=== PATIENT | male | born 1965 | race African-American/Black ===

== ENCOUNTER 2020-01-04 12:21 | Inpatient (IN) | payer OTHER ==
--- NOTE | 2020-01-04 12:32 | BHS.RME ---
Substance Use & Tx History - Substance Use History Alcohol Substance amount: 3 pints vodka Frequency of use: Daily Substance route: Oral Date of Last Use: 01/04/20 Heroin Substance amount: 3 bags Frequency of use: Less than 3 times per week Date of Last Use: 01/03/20 (started age 24) Cocaine-Crack Substance amount: $60 Frequency of use: Daily Substance route: Smoking Date of Last Use: 12/30/19 (started age 19) Marijuana/Hashish Substance amount: 1 blunt Frequency of use: Less than 5 times a year Substance route: Smoking Date of Last Use: 01/02/20 (t-5) Methadone Substance amount: street Frequency of use: Less than 3 times per week Substance route: Oral Date of Last Use: 01/02/20 (when he can't get heroin) Physical/Psych/Mental Status - Behavior General Behavior: Increased activity (restlessness, agitation) Eye Contact: Normal - Cooperativeness Cooperativeness: Cooperative - Thinking Thought Processes: Tight, Logical, Goal Directed - Physical Health Problems Is patient presently having any pain?: No Does patient presently have any injuries (include location): No Does patient currently have a fever: No Is patient : No CIWA Nausea/Vomitin-Mild Nausea/No Vomiting Muscle Tremors: 2 Anxiety: 2 Agitation: 2 Paroxysmal Sweats: 2 Orientation: 1-Uncertain about Date Tacttile Disturbances: 0-None Auditory Disturbances: 0-None Visual Disturbances: 0-None Headache: 0-None Present (not yet in withdrawals due to use) CIWA-Ar Total Score: 10
--- NOTE | 2020-01-04 13:31 | HP ---
CIWA Score Nausea/Vomitin-Mild Nausea/No Vomiting Muscle Tremors: 2 Anxiety: 2 Agitation: 2 Paroxysmal Sweats: 2 Orientation: 1-Uncertain about Date Tacttile Disturbances: 0-None Auditory Disturbances: 0-None Visual Disturbances: 0-None Headache: 0-None Present (not yet in withdrawals due to use) CIWA-Ar Total Score: 10 - Admission Criteria OASAS Guidelines: Admission for Medically Managed Detox: Requires at least one of the followin. CIWA greater than 12 2. Seizures within the past 24 hours 3. Delirium tremens within the past 24 hours 4. Hallucinations within the past 24 hours 5. Acute intervention needed for co occurring medical disorder 6. Acute intervention needed for co occurring psychiatric disorder 7. Severe withdrawal that cannot be handled at a lower level of care (continued vomiting, continued diarrhea, abnormal vital signs) requiring intravenous medication and/or fluids 8. Admitting History and Physical - Admission Chief Complaint: Mr. Greenfield is a 54 yo man who requests admission to detox for alcohol use. History of Present Illness: Mr. Greenfield is a 54 yo man who requests admission to detox for alcohol use. This is his first visit to [facility] [place], he is sent from [facility]. 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 Psych: none SoC: homeless Legal: court case pending next year Substance Use History Alcohol Substance amount: 3 pints vodka Frequency of use: Daily Substance route: Oral Date of Last Use: 01/04/20 Heroin Substance amount: 3 bags Frequency of use: Less than 3 times per week Date of Last Use: 01/03/20 (started age 24) Cocaine-Crack Substance amount: $60 Frequency of use: Daily Substance route: Smoking Date of Last Use: 12/30/19 (started age 19) Marijuana/Hashish Substance amount: 1 blunt Frequency of use: Less than 5 times a year Substance route: Smoking Date of Last Use: 01/02/20 (t-5) Methadone Substance amount: street Frequency of use: Less than 3 times per week Substance route: Oral Date of Last Use: 01/02/20 (when he can't get heroin) History Source: Patient Limitations to Obtaining History: Intoxication Admission ROS [facility] - HPI Exam Limitations: Other (intoxicated) - Ebola screening Have you traveled outside of the country in the last 21 days: No Have you been sick,other than usual withdrawal symptoms: No Do you have a fever: No - Review of Systems Constitutional: No Symptoms Reported EENT: reports: Blurred Vision (left eye blind post injury) Respiratory: reports: No Symptoms reported GI: reports: Nausea : reports: No Symptoms Reported Musculoskeletal: reports: Back Pain Integumentary: reports: No Symptoms Reported Neuro: reports: No Symptoms reported, Other (mild tremulousness) Endocrine: reports: No Symptoms Reported Hematology: reports: No Symptoms Reported Psychiatric: reports: Anxious Patient History - Smoking Cessation Smoking history: Current every day smoker Have you smoked in the past 12 months: Yes Hx Chewing Tobacco Use: No Initiated information on smoking cessation: Yes 'Breaking Loose' booklet given: 01/04/20 Admission Physical Exam [facility] - Vital Signs Vital Signs: vitals 125/77, HR 83, temp 98., RR 12 UDS: cyrus - Physical General Appearance: Yes: Intoxicated, Thin, Tremorous HEENTM: Yes: Hearing grossly Normal, Normocephalic, Normal Voice, Other (left eye esodeviated, unable to fully abduct, light perception?) Respiratory: Yes: Lungs Clear, No Respiratory Distress, No Accessory Muscle Use Neck: Yes: Within Normal Limits, Supple Breast: Yes: Breast Exam Deferred Cardiology: Yes: Regular Rhythm, Regular Rate Abdominal: Yes: Normal Bowel Sounds, Non Tender, Flat, Soft Genitourinary: Yes: Other (deferred) Musculoskeletal: Yes: Other (deferred, pt intoxicated, lying in bed) Extremities: Yes: Normal Inspection, Non-Tender Neurological: Yes: Alert, Normal Response Integumentary: Yes: Within Normal Limits - Diagnostic (1) Alcohol dependence with withdrawal, uncomplicated Current Visit: Yes Status: Acute Comment: 1. Admit alcohol use disorder. 2. Meets admission criteria due to comorbid medical disorders, noncompliance with medication, poor recovery environment (2) Opioid use disorder Current Visit: Yes Status: Acute Comment: 1. use is every other day, will not detox at this time, will observe clinically 2. Education about substance use disorder 3. Narcan to the pharmacy upon discharge (3) Cocaine dependence Current Visit: Yes Status: Acute Qualifiers: Substance use status: uncomplicated Qualified Code(s): F14.20 - Cocaine dependence, uncomplicated (4) Seizure disorder Current Visit: Yes Status: Acute Comment: 1. Await med reconciliation, will restart antiepileptic meds 2. Send AED drug level (5) HTN (hypertension) Current Visit: Yes Status: Acute Qualifiers: Hypertension type: essential hypertension Qualified Code(s): I10 - Essential (primary) hypertension Comment: 1. monitor clinically 2. pt admits to med noncompliance 3. RN to attempt med rec (6) Blind left eye Current Visit: Yes Status: Chronic (7) Fracture of left humerus Current Visit: No Status: Chronic Cleared for Admission S - Detox or Rehab [facility] Level of Care: Medically Managed Detox Regimen/Protocol: Librium Breathalyzer - Breathalyzer Breathalyzer: 0.108 Inpatient Rehab Admission - Rehab Decision to Admit Inpatient rehab admission?: No
[2020-01-04 13:43] VITALS: BMI 21.7
[2020-01-04] MEDS ORDERED: ACETAMINOPHEN 325 MG TABLET (FP) PO PRN ×2 (13:45)
[2020-01-04] MEDS ORDERED: MAG HYDROX/AL HYDROX/SIMETH 30 ML UNIT-DOSE CUP PO PRN (13:45)
[2020-01-04] MEDS ORDERED: MENTHOL/PHENOL 1 EACH UD MM PRN (13:45)
[2020-01-04] MEDS ORDERED: BISMUTH SUBSALICYLATE 262 MG/15 ML BTL PO PRN (13:45)
[2020-01-04] MEDS ORDERED: NICOTINE POLACRILEX 2 MG GUM BUC PRN (13:45)
[2020-01-04] MEDS ORDERED: IBUPROFEN 400 MG TABLET (FP) PO PRN (13:45)
[2020-01-04] MEDS ORDERED: MAGNESIUM CITRATE 300 ML BOTTLE PO PRN (13:45)
[2020-01-04] MEDS ORDERED: METHOCARBAMOL 500 MG TABLET PO PRN (13:45)
[2020-01-04] MEDS ORDERED: chlordiazePOXIDE HCL 25 MG CAPSULE PO PRN (13:45)
[2020-01-04] MEDS ORDERED: ONDANSETRON *ODT* 4 MG TABLET SL PRN (13:45)
[2020-01-04] MEDS ORDERED: MAGNESIUM HYDROX 2400MG/30ML ORAL SUSPENSION 30 ML CUP PO PRN (13:45)
--- OUTSIDE RECORDS SUMMARY | 2020-01-04 15:47 | XMS ---
:1965 Author Organization [facility] Support Name Relationship Address Phone UE Unavailable Unavailable Unavailable JACOB BOWEN BROTHER [address] [place] [address] Re-disclosure Warning The records that you are about to access may contain information from federally- assisted alcohol or drug abuse programs. If such information is present, then the following federally mandated warning applies: This information has been disclosed to you from records protected by federal confidentiality rules (42 CFR part 2). The federal rules prohibit you from making any further disclosure of this information unless further disclosure is expressly permitted by the written consent of the person to whom it pertains or as otherwise permitted by 42 CFR part 2. A general authorization for the release of medical or other information is NOT sufficient for this purpose. The Federal rules restrict any use of the information to criminally investigate or prosecute any alcohol or drug abuse patient.The records that you are about to access may contain highly sensitive health information, the redisclosure of which is protected by Article 27-F of the [facility] Public Health law. If you continue you may haveaccess to information: Regarding HIV / AIDS; Provided by facilities licensed or operated by the [facility] Office of Mental Health; or Provided by the [facility] Office for People With Developmental Disabilities. If such information is present, then the following [facility] mandated warning applies: This information has been disclosed to you from confidential records which are protected by state law. State law prohibits you from making any further disclosure of this information without the specific written consent of the person to whom it pertains, or as otherwise permitted by law. Any unauthorized further disclosure in violation of state law may result in a fine or alf sentence or both. A general authorization for the release of medical or other information is NOT sufficient authorization for further disclosure. Insurance Providers Payer name Policy type Policy ID Covered Covered republican's Policy P richmond / Coverage republican ID relationship to [employer] Inf ormation type cobb BEACON [id number] SP [id number] [facility] [place]
[2020-01-04 17:29] LABS: ALBUMIN 3.4 g/dl (3.4-5.0); BILIRUBIN,TOTAL 0.3 mg/dL (0.2-1); BLOOD UREA NITROGEN 17.2 mg/dL (7-18); CALCIUM 9.1 mg/dL (8.5-10.1); CREATININE 1.5 mg/dL (0.55-1.3); POTASSIUM 3.9 mmol/L (3.5-5.1); TOT PROT 7.4 g/dl (6.4-8.2)
[2020-01-04 17:45] LABS: HEMATOCRIT 36.7 % (35.4-49); HEMOGLOBIN 12.5 GM/dL (11.7-16.9); MCH 31.2 pg (25.7-33.7); MCHC 34.1 g/dl (32.0-35.9); MEAN CELL VOLUME 91.4 fl (80-96); MEAN PLT VOLUME 7.1 fl (7.5-11.1); PLATELET COUNT 362 K/MM3 (134-434); RBC 4.02 M/mm3 (4.00-5.60); RDW 13.9 % (11.9-15.9); WHITE BLOOD COUNT 5.4 K/mm3 (4.0-10.0)
[2020-01-04] MEDS: hydrOXYzine PAMOATE 25 MG CAPSULE (FP) PO SCH ×3 (20:08→23:40)
[2020-01-04] MEDS: chlordiazePOXIDE HCL 25 MG CAPSULE PO SCH ×2 (20:08→23:40)
[2020-01-04] MEDS: THIAMINE HCL 100 MG TABLET (FP) PO SCH (23:40)
[2020-01-04] MEDS: MELATONIN 5 MG TABLETS PO SCH (23:40)
[2020-01-05] MEDS: chlordiazePOXIDE HCL 25 MG CAPSULE PO SCH ×4 (06:42→23:50)
[2020-01-05] MEDS: hydrOXYzine PAMOATE 25 MG CAPSULE (FP) PO SCH ×5 (06:42→23:50)
--- NOTE | 2020-01-05 10:06 | EKG ---
Test Reason : Blood Pressure : / mmHG Vent. Rate : 070 BPM Atrial Rate : 070 BPM P-R Int : 156 ms QRS Dur : 102 ms QT Int : 466 ms P-R-T Axes : 078 077 019 degrees QTc Int : 503 ms NORMAL SINUS RHYTHM WITH SINUS ARRHYTHMIA T WAVE ABNORMALITY, CONSIDER ANTERIOR ISCHEMIA PROLONGED QT ABNORMAL ECG NO PREVIOUS ECGS AVAILABLE Confirmed by Ran Hull ([id number]) on 01/05/2020 10:06:38 AM Referred By: Confirmed By:Ran Hull
[2020-01-05] MEDS: NICOTINE 7 MG/24 HOURS TOPICAL PATCH TD SCH (10:48)
[2020-01-05] MEDS: PRENATAL VITAMINS W/ FOLIC ACID TABLET (FP) PO SCH (10:48)
--- NOTE | 2020-01-05 11:38 | PN ---
S CIWA - CIWA Score Nausea/Vomitin-No Nausea/No Vomiting Muscle Tremors: 3 Anxiety: 2 Agitation: 3 Paroxysmal Sweats: 2 Orientation: 0-Oriented Tacttile Disturbances: 0-None Auditory Disturbances: 0-None Visual Disturbances: 0-None Headache: 0-None Present CIWA-Ar Total Score: 10 BHS Progress Note (SOAP) Subjective: irritable agitation Objective: 01/05/20 11:36 Vital Signs Temperature 97.8 F 01/05/20 08:13 Pulse Rate 51 L 01/05/20 08:13 Respiratory Rate 01/05/20 08:13 Blood Pressure 144/97 01/05/20 08:13 O2 Sat by Pulse Oximetry (%) 96 01/05/20 08:13 Laboratory Tests 01/04/20 01/04/20 01/04/20 14:10 14:10 14:10 WBC 5.4 RBC 4.02 Hgb 12.5 Hct 36.7 MCV 91.4 MCH 31.2 MCHC 34.1 RDW 13.9 Plt Count 362 MPV 7.1 L Sodium 144 Potassium 3.9 Chloride 110 H Carbon Dioxide 27 Anion Gap 7 L BUN 17.2 Creatinine 1.5 H Est GFR (CKD-EPI)AfAm 60.73 Est GFR (CKD-EPI)NonAf 52.40 Random Glucose 97 Calcium 9.1 Total Bilirubin 0.3 AST 12 L ALT 18 Alkaline Phosphatase 104 Total Protein 7.4 Albumin 3.4 Syphilis Serology Non-reactive aaox3 ambulating no acute distress pt refused to elaborate any s/s of withdrawals Assessment: 01/05/20 11:36 withdrawals Plan: continue detox
[2020-01-05] MEDS: THIAMINE HCL 100 MG TABLET (FP) PO SCH (23:50)
[2020-01-05] MEDS: MELATONIN 5 MG TABLETS PO SCH (23:50)
[2020-01-06] MEDS: chlordiazePOXIDE HCL 25 MG CAPSULE PO SCH ×4 (07:49→23:09)
[2020-01-06] MEDS: hydrOXYzine PAMOATE 25 MG CAPSULE (FP) PO SCH ×5 (07:50→23:09)
[2020-01-06] MEDS: NICOTINE 7 MG/24 HOURS TOPICAL PATCH TD SCH (10:37)
[2020-01-06] MEDS: PRENATAL VITAMINS W/ FOLIC ACID TABLET (FP) PO SCH (10:37)
--- NOTE | 2020-01-06 13:18 | PN ---
S CIWA - CIWA Score Nausea/Vomitin-No Nausea/No Vomiting Muscle Tremors: 3 Anxiety: 2 Agitation: 2 Paroxysmal Sweats: 2 Orientation: 0-Oriented Tacttile Disturbances: 0-None Auditory Disturbances: 0-None Visual Disturbances: 0-None Headache: 0-None Present CIWA-Ar Total Score: 9 BHS Progress Note (SOAP) Subjective: restless sweats body aches agitation Objective: 01/06/20 13:17 Vital Signs Temperature 97.8 F 01/06/20 09:10 Pulse Rate 95 H 01/06/20 09:10 Respiratory Rate 16 01/06/20 09:10 Blood Pressure 122/92 01/06/20 09:10 O2 Sat by Pulse Oximetry (%) 97 01/06/20 09:10 Laboratory Tests 01/04/20 01/04/20 01/04/20 14:00 14:10 14:10 WBC 5.4 RBC 4.02 Hgb 12.5 Hct 36.7 MCV 91.4 MCH 31.2 MCHC 34.1 RDW 13.9 Plt Count 362 MPV 7.1 L Sodium 144 Potassium 3.9 Chloride 110 H Carbon Dioxide 27 Anion Gap 7 L BUN 17.2 Creatinine 1.5 H Est GFR (CKD-EPI)AfAm 60.73 Est GFR (CKD-EPI)NonAf 52.40 Random Glucose 97 Calcium 9.1 Total Bilirubin 0.3 AST 12 L ALT 18 Alkaline Phosphatase 104 Total Protein 7.4 Albumin 3.4 Syphilis Serology COVID-19 ([facility]ICIA) Not detected 01/04/20 14:10 WBC RBC Hgb Hct MCV MCH MCHC RDW Plt Count MPV Sodium Potassium Chloride Carbon Dioxide Anion Gap BUN Creatinine Est GFR (CKD-EPI)AfAm Est GFR (CKD-EPI)NonAf Random Glucose Calcium Total Bilirubin AST ALT Alkaline Phosphatase Total Protein Albumin Syphilis Serology Non-reactive COVID-19 (ALICIA) labs noted aaox3 ambulating no acute distress Assessment: 01/06/20 13:17 withdrawals Plan: continue detox
[2020-01-06] MEDS: MELATONIN 5 MG TABLETS PO SCH (23:08)
[2020-01-06] MEDS: THIAMINE HCL 100 MG TABLET (FP) PO SCH (23:09)
[2020-01-07] MEDS ORDERED: chlordiazePOXIDE HCL 10 MG CAPSULE PO PRN
[2020-01-07] MEDS: chlordiazePOXIDE HCL 10 MG CAPSULE PO SCH ×2 (07:51→10:24)
[2020-01-07] MEDS: hydrOXYzine PAMOATE 25 MG CAPSULE (FP) PO SCH ×2 (07:51→10:24)
[2020-01-07 09:30] VITALS: BP 121/64; PULSE 76; TEMP 98.1
[2020-01-07] MEDS: NICOTINE 7 MG/24 HOURS TOPICAL PATCH TD SCH (10:24)
[2020-01-07] MEDS: PRENATAL VITAMINS W/ FOLIC ACID TABLET (FP) PO SCH (10:24)
[2020-01-07] MEDS ORDERED: hydrOXYzine PAMOATE 25 MG CAPSULE (FP) PO PRN (12:26)
--- NOTE | 2020-01-07 12:29 | PN ---
S CIWA - CIWA Score Nausea/Vomitin-No Nausea/No Vomiting Muscle Tremors: 2 Anxiety: 1-Mildly Anxious Agitation: 2 Paroxysmal Sweats: 1-Minimal Palms Moist Orientation: 0-Oriented Tacttile Disturbances: 0-None Auditory Disturbances: 0-None Visual Disturbances: 0-None Headache: 0-None Present CIWA-Ar Total Score: 6 BHS Progress Note (SOAP) Subjective: anxious sweats restless Objective: 01/07/20 12:27 Vital Signs Temperature 98.1 F 01/07/20 09:00 Pulse Rate 76 01/07/20 09:00 Respiratory Rate 17 01/07/20 09:00 Blood Pressure 121/64 01/07/20 09:00 O2 Sat by Pulse Oximetry (%) 100 01/07/20 09:00 Laboratory Tests 01/04/20 01/04/20 01/04/20 14:00 14:10 14:10 WBC 5.4 RBC 4.02 Hgb 12.5 Hct 36.7 MCV 91.4 MCH 31.2 MCHC 34.1 RDW 13.9 Plt Count 362 MPV 7.1 L Sodium 144 Potassium 3.9 Chloride 110 H Carbon Dioxide 27 Anion Gap 7 L BUN 17.2 Creatinine 1.5 H Est GFR (CKD-EPI)AfAm 60.73 Est GFR (CKD-EPI)NonAf 52.40 Random Glucose 97 Calcium 9.1 Total Bilirubin 0.3 AST 12 L ALT 18 Alkaline Phosphatase 104 Total Protein 7.4 Albumin 3.4 Syphilis Serology COVID-19 ([facility]) Not detected 01/04/20 14:10 WBC RBC Hgb Hct MCV MCH MCHC RDW Plt Count MPV Sodium Potassium Chloride Carbon Dioxide Anion Gap BUN Creatinine Est GFR (CKD-EPI)AfAm Est GFR (CKD-EPI)NonAf Random Glucose Calcium Total Bilirubin AST ALT Alkaline Phosphatase Total Protein Albumin Syphilis Serology Non-reactive COVID-19 ([facility]) aaox3 ambulating no acute distress Assessment: 01/07/20 12:28 withdrawals Plan: continue detox
--- NOTE | 2020-01-07 14:40 | PN ---
[facility] Progress Note Note: pt states this is not the place for him and wants to go home. Pt is insisting on talking to his significant other who is in another unit and it was explained by counseling, medical and nursing that we cannot jeopardize another person treatment or recovery but he did not want to hear that. Pt was also explained that with the proper consent and counseling between both unit we could find a way to assist with communication. Again pt refused and insisted on leaving to speak to his woman. will d/c pt.
--- NOTE | 2020-01-07 14:41 | DS ---
[facility] Detox Discharge Summary Admission Date: 01/04/20 Discharge Date: 01/07/20 - History Present History: Alcohol Dependence, Cocaine Dependence - Physical Exam Results Vital Signs: Vital Signs Temperature 98.1 F 01/07/20 09:00 Pulse Rate 76 01/07/20 09:00 Respiratory Rate 17 01/07/20 09:00 Blood Pressure 121/64 01/07/20 09:00 O2 Sat by Pulse Oximetry (%) 100 01/07/20 09:00 Pertinent Admission Physical Exam Findings: Vital Signs Temperature 98.1 F 01/07/20 09:00 Pulse Rate 76 01/07/20 09:00 Respiratory Rate 17 01/07/20 09:00 Blood Pressure 121/64 01/07/20 09:00 O2 Sat by Pulse Oximetry (%) 100 01/07/20 09:00 Laboratory Tests 01/04/20 01/04/20 01/04/20 14:00 14:10 14:10 WBC 5.4 RBC 4.02 Hgb 12.5 Hct 36.7 MCV 91.4 MCH 31.2 MCHC 34.1 RDW 13.9 Plt Count 362 MPV 7.1 L Sodium 144 Potassium 3.9 Chloride 110 H Carbon Dioxide 27 Anion Gap 7 L BUN 17.2 Creatinine 1.5 H Est GFR (CKD-EPI)AfAm 60.73 Est GFR (CKD-EPI)NonAf 52.40 Random Glucose 97 Calcium 9.1 Total Bilirubin 0.3 AST 12 L ALT 18 Alkaline Phosphatase 104 Total Protein 7.4 Albumin 3.4 Syphilis Serology COVID-19 ([facility]) Not detected 01/04/20 14:10 WBC RBC Hgb Hct MCV MCH MCHC RDW Plt Count MPV Sodium Potassium Chloride Carbon Dioxide Anion Gap BUN Creatinine Est GFR (CKD-EPI)AfAm Est GFR (CKD-EPI)NonAf Random Glucose Calcium Total Bilirubin AST ALT Alkaline Phosphatase Total Protein Albumin Syphilis Serology Non-reactive COVID-19 ([facility]) labs noted aaox3 ambulating no acute distress - Treatment Hospital Course: Detox Protocol Followed, Detoxed Safely, Responded well, Discharged Condition Good, Rehab Referral Accepted - Medication Discharge Medications: Ambulatory Orders Unobtainable 01/04/20 - Diagnosis (1) H/O heart artery stent Current Visit: Yes Status: Acute (2) HTN (hypertension) Current Visit: Yes Status: Acute Qualifiers: Hypertension type: essential hypertension Qualified Code(s): I10 - Essential (primary) hypertension (3) Seizure disorder Current Visit: Yes Status: Acute (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
[2020-01-08] MEDS ORDERED: chlordiazePOXIDE HCL 10 MG CAPSULE PO SCH (05:00)
[2020-01-09] MEDS ORDERED: chlordiazePOXIDE HCL 10 MG CAPSULE PO ONE (05:00)
== END 2020-01-07 14:53 | disposition home or self-care (01) | DRG 773 ==
LOC: YASAS 12:21 → Y6N 14:07
PROVIDERS: ADMIT Allergy & Immunology; ATTEND Allergy & Immunology
PROC: HZ2ZZZZ Detoxification Services for Substance Abuse Treatment (ICD-10-PCS; principal; 2020-01-04)
DX: F10.230 Alcohol dependence with withdrawal, uncomplicated (principal); F14.20 Cocaine dependence, uncomplicated; F11.10 Opioid abuse, uncomplicated; F12.10 Cannabis abuse, uncomplicated; G40.909 Epilepsy, unspecified, not intractable, without status epilepticus; I10 Essential (primary) hypertension; Z95.5 Presence of coronary angioplasty implant and graft; H54.62 Unqualified visual loss, left eye, normal vision right eye; R94.31 Abnormal electrocardiogram [ECG] [EKG]; Z87.81 Personal history of (healed) traumatic fracture; Z91.018 Allergy to other foods; Z59.0 Homelessness
CPT/HCPCS: 36415; 80053; 85027; 86780; 93005; 93010; U0003

== ENCOUNTER 2020-01-04 15:29 | Emergency (ER) | payer OTHER ==
[2020-01-04 15:46] VITALS: BP 116/77; PULSE 76; TEMP 98.3; BMI 22.3
--- NOTE | 2020-01-04 16:21 | PDOC ---
History of Present Illness - General Chief Complaint: Alcohol intoxication Stated Complaint: Abnormal Lab Results Time Seen by Provider: 01/04/20 15:45 History Source: Patient, Other ([facility] Notes) - History of Present Illness Initial Comments: 01/04/20 16:20 54y M with PMH of polysubstance use (cocaine, heroin, alcohol) presenting to the ER from [facility] for abnormal EKG. Pt is denying chest pain, sob, abdominal pain, n/v/d, fever, chills, cough. States he last used at 1am today. Pt otherwise uncooperative with questions and exam. 01/04/20 17:26 Past History - Medical History Allergies/Adverse Reactions: Allergies Allergy/AdvReac Type Severity Reaction Status Date / Time Pork/Porcine Containing Allergy Severe Swelling Verified 01/04/20 15:43 Products No Known Drug Allergies Allergy Verified 01/04/20 15:43 Home Medications: Ambulatory Orders Unobtainable 01/04/20 Asthma: No Cardiac Disorders: Yes (patient reports 6 cardiac stents) COPD: No Diabetes: No GI Disorders: No Disorders: No HTN: Yes Kidney Stones: No Seizures: No - Surgical History Abdominal Surgery: No Appendectomy: No Cardiac Surgery: Yes (2016, patient report 6 stents) Cholecystectomy: No Lung Surgery: No Neurologic Surgery: No Orthopedic Surgery: No - Reproductive History Testicular Surgery: No - Psycho-Social/Smoking History Smoking History: Former smoker Have you smoked in the past 12 months: No Number of Cigarettes Smoked Daily: 7 If you are a former smoker, when did you quit?: no Information on smoking cessation initiated: No 'Breaking Loose' booklet given: 01/04/20 - Substance Abuse Hx (Audit-C & DAST Scrn) How often the patient has a drink containing alcohol: 4 0r more times/wk Number of drinks the patient has on a typical day: 10 or more How often the patient has six or more drinks on one occasion: Daily or almost daily Score: In Men: 4 or > Positive; In Women: 3 or > Positive: 12 Screen Result (Pos requires Nsg. Audit-10AR): Positive In the last yr the pt used illegal drug/Rx for NonMed reason: Yes Score: Yes response is considered Positive: 1 Screen Result (Positive result requires Nsg. DAST-10): Positive Review of Systems - Review of Systems Constitutional: No: Symptoms Reported HEENTM: No: Symptoms Reported Respiratory: No: Symptoms reported Cardiac (ROS): No: Symptoms Reported ABD/GI: No: Symptoms Reported : No: Symptoms Reported Musculoskeletal: No: Symptoms Reported Integumentary: No: Symptoms Reported Neurological: No: Symptoms reported *Physical Exam - Vital Signs Last Vital Signs Temp Pulse Resp BP Pulse Ox 98.3 F 76 16 116/77 97 01/04/20 15:44 01/04/20 15:44 01/04/20 15:44 01/04/20 15:44 01/04/20 15:44 - Physical Exam General Appearance: Yes: Thin. No: Apparent Distress HEENT: positive: EOMI, JOSUÉ Neck: positive: Trachea midline, Supple Respiratory/Chest: positive: Lungs Clear, Normal Breath Sounds. negative: Crackles, Rales, Rhonchi, Stridor, Wheezing Cardiovascular: positive: Regular Rhythm, Regular Rate, S1, S2. negative: Edema, JVD, Murmur Vascular Pulses: Dorsalis-Pedis (R): 2+, Doralis-Pedis (L): 2+ Gastrointestinal/Abdominal: positive: Normal Bowel Sounds, Soft. negative: Tender Musculoskeletal: negative: CVA Tenderness Extremity: positive: Normal Capillary Refill. negative: Pedal Edema, Swelling, Calf Tenderness Integumentary: positive: Normal Color, Dry, Warm Neurologic: positive: engineer systems II-XII NML intact, Fully Oriented, Alert, Normal Mood/Affect, Normal Response, Motor Strength 5/5 ED Treatment Course - LABORATORY CBC & Chemistry Diagram: 01/04/20 16:36 01/04/20 16:36 Medical Decision Making - Medical Decision Making 01/04/20 17:28 54y M with polysubstance abuse presenting to the ER for abnormal ekg from [facility]. vitals wnl has no complaints. ekg: nsr at 63bpm. no celi or depressions. twi in V1, V2. labs pending 01/04/20 17:56 pt wants to leave. Does not wish to stay for lab results. pt told that he will not get transport back to [facility] if he does not wait to be cleared. pt states he does not care. He is clinically sober, no ataxia, no slurred speech. pt told that he risks permanent disability, if he does not wait. pt says "I am already disabled". refusing to sign AMA form. walked out of ER pt eloped. Discharge - Discharge Information Problems reviewed: Yes Clinical Impression/Diagnosis: Intoxication, Opioid use disorder, Abnormal EKG Cocaine dependence Qualifiers: Substance use status: uncomplicated Qualified Code(s): F14.20 - Cocaine dependence, uncomplicated Condition: Unchanged/Unknown Disposition: ELOPED - Follow up/Referral - Patient Discharge Instructions Patient Printed Discharge Instructions: DI for Alcohol Use Disorder Additional Instructions: You were seen in the ER today for an abnormal EKG. There is no signs of an [place]. The blood tests are normal. Come back to the ER if there is chest pain, shortness of breath, respiratory distress. Thank you - Post Discharge Activity
--- NOTE | 2020-01-04 17:28 | PDOC ---
Documentation entered by Citlali Reis SCRIBE, acting as scribe for Jada Stratton DO. Jada Stratton DO: This documentation has been prepared by the Smiley sánchez Xhesika, SCRIBE, under my direction and personally reviewed by me in its entirety. I confirm that the documentation accurately reflects all work, treatment, procedures, and medical decision making performed by me. Attending Attestation - Resident Resident Name: Layne Donaldson - ED Attending Attestation I have performed the following: I have examined & evaluated the patient, The case was reviewed & discussed with the resident, I agree w/resident's findings & plan, Exceptions are as noted - HPI HPI: 01/04/20 16:17 The patient is a 54 year old male with a significant PMH of alcohol abuse and heroin, crack-cocain, marijuana abuse who presents to the emergency department [facility] from [facility] for abnormal ekg. The patient denies chest pain, shortness of breath, headache and dizziness. Denies fever, chills, cough, nausea, vomiting, diarrhea and constipation. Denies dysuria, frequency, urgency and hematuria. Allergies: NKDA. Pork/porcine containing products. - Physicial Exam PE: 01/04/20 16:20 GENERAL: sleeping, arousable, but doesn't want to participate in the exam EYES: refusing to open ENT: hearing grossly normal, nares patent NECK: Normal ROM LUNGS: Breath sounds equal, clear to auscultation bilaterally. No wheezes, and no crackles HEART: Regular rate and rhythm, normal S1 and S2, no murmurs, rubs or gallops ABDOMEN: Soft, nontender, normoactive bowel sounds. No guarding, no rebound. No masses EXTREMITIES: moves all extremities, no c/c/e SKIN: no track dykes 01/04/20 17:24 - Medical Decision Making 01/04/20 17:26 a/p: 54yo male sent from [facility] for eval of abnl ekg -hx of cad with 6 stents -no cp or sob -pt unwilling to fully participate in the exam or history -keeps stating he only wants detox -will send labs, ekg -if trop neg and ekg nonacute will be stable for dc back to [facility] 01/04/20 17:54 pt labs pending pt states he does not want to wait for trop and doesn't want to go back to detox states he wants to ama states he wants to leave trop pending pt states he wants to sign out ama states he doesn't care about detox pt will sign AMA paperwork Note: The patient insists on leaving the emergency dept and is signing out against medical advice. The patient understands the risks and complications that may result from the refusal of medical care and admission which includes and permanent disability. The patient has the mental capacity of understanding the risks of refusing care and is capable of making an informed decision. The patient was instructed to return to the emergency department should he change his mind regarding medical care or should his condition worsen. The patient signed the Against Medical Advice form. Heart Score/ECG Review - ECG Intrepretation Comment:: 01/04/20 17:28 sinus at 63, nl axis, q waves septally which is age indeterminate, no acute st changes, abnl ekg, but no acute stemi Discharge - Discharge Information Problems reviewed: Yes Clinical Impression/Diagnosis: Intoxication, Opioid use disorder, Abnormal EKG Cocaine dependence Qualifiers: Substance use status: uncomplicated Qualified Code(s): F14.20 - Cocaine dependence, uncomplicated Condition: Unchanged/Unknown Disposition: AGAINST MEDICAL ADVICE - Follow up/Referral - Patient Discharge Instructions Patient Printed Discharge Instructions: DI for Alcohol Use Disorder Additional Instructions: You were seen in the ER today for an abnormal EKG. There is no signs of an [place]. The blood tests are normal. Come back to the ER if there is chest pain, shortness of breath, respiratory distress. Thank you - Post Discharge Activity
[2020-01-04 17:55] LABS: BASO % 0.7 % (0-2.0); EOS % 2.5 % (0-4.5); LYMPH % 29.8 % (8-40); MCHC 34.2 g/dl (32.0-35.9); MEAN CELL VOLUME 90.7 fl (80-96); MONO % 8.3 % (3.8-10.2); NEUT % 58.7 % (42.8-82.8); PLATELET COUNT 353 K/MM3 (134-434); RBC 3.86 M/mm3 (4.00-5.60)
--- OUTSIDE RECORDS SUMMARY | 2020-01-04 17:58 | XMS ---
:1965 Author Organization [facility] Support Name Relationship Address Phone UE Unavailable Unavailable Unavailable JACOB BOWEN BROTHER [address] [place] [address] Re-disclosure Warning The records that you are [...] is protected by Article 27-F of the [facility] Public Health law. If you continue you may haveaccess to information: Regarding HIV / AIDS; Provided by facilities licensed or operated by the [facility] Office of Mental Health; or Provided by the [facility] Office for People With Developmental Disabilities. If such information is present, then the following [facility] mandated warning applies: This information has been [...] law may result in a fine or usp sentence or both. A general authorization for the release of medical or other information is NOT sufficient authorization for further disclosure. Insurance Providers Payer name Policy type Policy ID Covered Covered republican's Policy P richmond / Coverage republican ID relationship to [employer] Inf ormation type cobb BEACON [id number] SP [id number] [employer] [id number] SP [id number] [employer] PLAN
[2020-01-04 18:11] LABS: ALBUMIN 3.1 g/dl (3.4-5.0); ALK PHOS 93 U/L (45-117); ANION GAP 6 MMOL/L (8-16); BILIRUBIN,TOTAL 0.2 mg/dL (0.2-1); BLOOD UREA NITROGEN 18.2 mg/dL (7-18); CALCIUM 8.8 mg/dL (8.5-10.1); CHLORIDE 112 mmol/L (98-107); CO2 26 mmol/L (21-32); CREATININE 1.5 mg/dL (0.55-1.3); GLUCOSE,RANDOM 82 mg/dL (74-106); POTASSIUM 4.3 mmol/L (3.5-5.1); SGOT/AST 17 U/L (15-37); SGPT/ALT 18 U/L (13-61); SODIUM 143 mmol/L (136-145); TOT PROT 6.9 g/dl (6.4-8.2)
--- NOTE | 2020-01-05 10:01 | EKG ---
Test Reason : Blood Pressure : / mmHG Vent. Rate : 063 BPM Atrial Rate : 063 BPM P-R Int : 152 ms QRS Dur : 092 ms QT Int : 444 ms P-R-T Axes : 083 084 036 degrees QTc Int : 454 ms NORMAL SINUS RHYTHM POSSIBLE LEFT ATRIAL ENLARGEMENT NONSPECIFIC T WAVE ABNORMALITY ABNORMAL ECG WHEN COMPARED WITH ECG OF 04-JAN-2020 13:19, ST NO LONGER ELEVATED IN ANTERIOR LEADS NONSPECIFIC T WAVE ABNORMALITY HAS REPLACED INVERTED T WAVES IN ANTERIOR LEADS Confirmed by Ran Hull ([id number]) on 01/05/2020 10:00:23 AM Referred By: Confirmed By:Ran Hull
== END 2020-01-04 18:03 | disposition left against medical advice (07) ==
LOC: JER 15:29
DX: F14.20 Cocaine dependence, uncomplicated (principal); R94.31 Abnormal electrocardiogram [ECG] [EKG]
CPT/HCPCS: 36415; 80053; 82550; 84484; 85025; 93005; 93010; 99284-25

== ENCOUNTER 2020-01-04 18:20 | Emergency (ER) | payer OTHER ==
--- NOTE | 2020-01-04 18:24 | PDOC ---
History of Present Illness - General Stated Complaint: ABNORMAL LAB RESULTS History Source: Patient Exam Limitations: No Limitations - History of Present Illness Initial Comments: 01/04/20 18:22 54y M just seen here, eloped now returned to ER to find out labs. Pt sent from [facility] for abnormal EKG. EKG here does not show any signs of acute ischemia. labs wnl. Pt does not have any complaints. Past History - Medical History Allergies/Adverse Reactions: Allergies Allergy/AdvReac Type Severity Reaction Status Date / Time Pork/Porcine Containing Allergy Severe Swelling Verified 01/04/20 15:43 Products No Known Drug Allergies Allergy Verified 01/04/20 15:43 Home Medications: Ambulatory Orders Unobtainable 01/04/20 Asthma: No Cardiac Disorders: Yes (patient reports 6 cardiac stents) COPD: No Diabetes: No GI Disorders: No Disorders: No HTN: Yes Kidney Stones: No Seizures: No - Surgical History Abdominal Surgery: No Appendectomy: No Cardiac Surgery: Yes (2016, patient report 6 stents) Cholecystectomy: No Lung Surgery: No Neurologic Surgery: No Orthopedic Surgery: No - Reproductive History Testicular Surgery: No - Psycho-Social/Smoking History Smoking History: Former smoker Have you smoked in the past 12 months: No Number of Cigarettes Smoked Daily: 7 If you are a former smoker, when did you quit?: no 'Breaking Loose' booklet given: 01/04/20 Review of Systems - Review of Systems Constitutional: No: Symptoms Reported HEENTM: No: Symptoms Reported Respiratory: No: Symptoms reported Cardiac (ROS): No: Symptoms Reported ABD/GI: No: Symptoms Reported : No: Symptoms Reported Musculoskeletal: No: Symptoms Reported Integumentary: No: Symptoms Reported Neurological: No: Symptoms reported *Physical Exam - Physical Exam General Appearance: Yes: Apparent Distress, Thin. No: Appropriately Dressed HEENT: positive: EOMI, JOSUÉ Neck: positive: Trachea midline, Supple Respiratory/Chest: positive: Lungs Clear, Normal Breath Sounds. negative: Crackles, Rales, Rhonchi, Stridor, Wheezing Cardiovascular: positive: Regular Rhythm, Regular Rate, S1, S2. negative: Edema Vascular Pulses: Dorsalis-Pedis (R): 2+, Doralis-Pedis (L): 2+ Gastrointestinal/Abdominal: positive: Normal Bowel Sounds, Soft. negative: Tender Musculoskeletal: positive: Normal Inspection. negative: CVA Tenderness Extremity: positive: Normal Capillary Refill. negative: Pedal Edema, Swelling Integumentary: positive: Normal Color, Dry, Warm Neurologic: positive: borematic machine operator II-XII NML intact, Fully Oriented, Alert, Normal Mood/Affect, Normal Response, Motor Strength /5 Medical Decision Making - Medical Decision Making 01/04/20 18:25 54y M coming back to ER for lab results. ekg done earlier, no signs of acute ischemia. no white count, negative trop. cr 1.5. was 1.5 earlier today. will dc back to [facility]. results discussed with patient. Discharge - Discharge Information Problems reviewed: Yes Clinical Impression/Diagnosis: Alcohol dependence with withdrawal, uncomplicated, Opioid use disorder, Abnormal EKG, Intoxication Cocaine dependence Qualifiers: Substance use status: uncomplicated Qualified Code(s): F14.20 - Cocaine dependence, uncomplicated Condition: Stable Disposition: TRANSFER ACUTE CARE/OTHER HOSP - Admission No - Follow up/Referral - Patient Discharge Instructions Additional Instructions: You were seen in in the ER for an abnormal EKG. You are not having a heart attack. Drink plenty of water. Come back to the ER if you have chest pain, cannot breath. - Post Discharge Activity
--- NOTE | 2020-01-04 18:28 | PDOC ---
Attending Attestation - Resident Resident Name: Layne Donaldson - ED Attending Attestation I have performed the following: I have examined & evaluated the patient, The case was reviewed & discussed with the resident, I agree w/resident's findings & plan, Exceptions are as noted - HPI HPI: 01/04/20 18:24 54yo male from [facility] for abnl ekg. Pt denies cp. Eloped earlier. Walked up the ambulance bay and then walked back down saying he wants to be treated and go to [facility] for detox from ETOH. - Physicial Exam PE: 01/04/20 18:25 Gen: awake, ambulatory in the ER heart: +s1s2 reg lungs: cta b/l abd: soft, nt/nd +bs - Medical Decision Making 01/04/20 18:25 a/p: 54yo male with cocaine use, heroin use, marijuana use, alcohol use with abnl ekg from [facility] -pt with neg trop -no acute changes on ekg -willing to undergo treatment and wants to go back to [facility] -stable for dc back to [facility] 01/04/20 18:30 case discussed with [facility] 01/04/20 18:58 pt in green scrubs, but no beds at [facility] pt will be taken by security back to [facility] to obtain his belongings. Heart Score/ECG Review - ECG Intrepretation Comment:: 01/04/20 18:27 sinus at 64, nl axis, q waves septally which are age indeterminate, no acute st changes Discharge - Discharge Information Problems reviewed: Yes Clinical Impression/Diagnosis: Alcohol dependence with withdrawal, uncomplicated, Opioid use disorder, Abnormal EKG, Intoxication Cocaine dependence Qualifiers: Substance use status: uncomplicated Qualified Code(s): F14.20 - Cocaine dependence, uncomplicated Condition: Stable Disposition: TRANSFER ACUTE CARE/OTHER HOSP - Admission No - Follow up/Referral - Patient Discharge Instructions Additional Instructions: You were seen in in the ER for an abnormal EKG. You are not having a heart attack. Drink plenty of water. Come back to the ER if you have chest pain, cannot breath. - Post Discharge Activity
--- OUTSIDE RECORDS SUMMARY | 2020-01-04 18:44 | XMS ---
:1965 Author Organization [facility] Support Name Relationship Address Phone UE, UNEMPLOYED Unavailable Unavailable Unavailable UE Unavailable Unavailable Unavailable JACOB [place] [address] [place] [address] [address] [place] [address] Re-disclosure Warning The records that you are [...] is protected by Article 27-F of the [facility] Public Health law. If you continue you may haveaccess to information: Regarding HIV / AIDS; Provided by facilities licensed or operated by the [facility] Office of Mental Health; or Provided by the [facility] Office for People With Developmental Disabilities. If such information is present, then the following [facility] mandated warning applies: This information has [...] law may result in a fine or penitentiary sentence or both. A general authorization for the release of medical or other information is NOT sufficient authorization for further disclosure. Insurance Providers Payer name Policy type Policy ID Covered Covered alliance party's Policy P richmond / Coverage alliance party ID relationship to [employer] ormation type [employer] [id number] SP [id number] [employer] [id number] SP [id number] [facility]
[2020-01-04 19:03] VITALS: BP 136/68; PULSE 63; TEMP 98; BMI 22.8
== END 2020-01-04 19:21 | disposition short-term general hospital (02) ==
LOC: JER 18:20
DX: F10.239 Alcohol dependence with withdrawal, unspecified (principal); F14.20 Cocaine dependence, uncomplicated; R94.31 Abnormal electrocardiogram [ECG] [EKG]
CPT/HCPCS: 99285-25